=== PATIENT | female | born 1940 | race Hispanic/Latino ===

== ENCOUNTER → 2017-05-30 | Outpatient (CLI) | payer OTHER | END | disposition home or self-care (01) | LOC: SHCH 11:26 | PROVIDERS: ATTEND Internal Medicine Cardiovascular Disease | DX: I10 Essential (primary) hypertension (principal) | CPT/HCPCS: 93306 ==

== ENCOUNTER → 2017-06-02 | Outpatient (CLI) | payer OTHER ==
[~2017-06-02] MED LIST: REGADENOSON 0.4 MG/5 ML PF SYG IVP SCH
== END | disposition home or self-care (01) ==
LOC: SHCH 07:55 → EDUNIT# 08:10
PROVIDERS: ATTEND Internal Medicine Cardiovascular Disease
DX: R07.9 Chest pain, unspecified (principal)
CPT/HCPCS: 78452; 93017; 96374; A9500 ×2; J2785

== ENCOUNTER → 2020-08-28 | Outpatient (CLI) | payer MEDICARE ==
[~2020-08-28] MED LIST changes: +AMLO-104 PO; +ASPI-556 PO; +DIAZ2TAB3 PO; +METF-444 PO; +PRAV20TA4 PO; -REGADENOSON 0.4 MG/5 ML PF SYG IVP SCH
== END | disposition home or self-care (01) ==
LOC: SHCH 13:00
PROVIDERS: ATTEND Internal Medicine Cardiovascular Disease
DX: I51.7 Cardiomegaly (principal); R68.81 Early satiety; K29.40 Chronic atrophic gastritis without bleeding; R00.2 Palpitations; E78.5 Hyperlipidemia, unspecified; E11.9 Type 2 diabetes mellitus without complications; R55 Syncope and collapse; I10 Essential (primary) hypertension
CPT/HCPCS: 93306; 93356

== ENCOUNTER 2020-08-29 10:10 | Emergency (ER) | payer MEDICARE ==
[2020-08-29 11:20] LABS: BASOPHILS % (AUTO) 0.5 % (0.0-5.0); EOSINOPHILS % (AUTO) 3.6 % (0.0-8.0); HEMATOCRIT 45.6 % (36-48); LYMPHOCYTES % (AUTO) 16.9 % (21.0-51.0); MEAN CORPUSCULAR HEMOGLOBIN 30.8 pg (27.0-33.0); MEAN CORPUSCULAR HGB CONC 33.1 g/dL (32.0-36.0); MEAN CORPUSCULAR VOLUME 93.1 fL (79-99); NEUTROPHILS % (AUTO) 69.5 % (40.0-77.0); PLATELET COUNT (AUTO) 183 K/uL (130-400); RED CELL DISTRIBUTION WIDTH 13.2 % (11.0-15.5); WHITE BLOOD COUNT (AUTO) 5.8 K/uL (4.8-10.8)
[2020-08-29 11:31] LABS: ALBUMIN 4.3 g/dL (3.5-5.0); BILIRUBIN,TOTAL 0.4 mg/dL (0.2-1.0); POTASSIUM 4.7 mmol/L (3.5-5.1)
[2020-08-29] MEDS ORDERED: SODIUM CHLORIDE 0.9% 500ML 500 ML IV ONE (12:17)
== END 2020-08-29 13:36 | disposition home or self-care (01) ==
LOC: EDH 10:10
DX: R55 Syncope and collapse (principal); R53.1 Weakness; R51.9 Headache, unspecified; I10 Essential (primary) hypertension; E11.9 Type 2 diabetes mellitus without complications; E78.00 Pure hypercholesterolemia, unspecified; Z88.2 Allergy status to sulfonamides; Z90.710 Acquired absence of both cervix and uterus; Z90.49 Acquired absence of other specified parts of digestive tract
CPT/HCPCS: 36415; 70450; 80053; 85025; 93005; 99285; J7040

== ENCOUNTER 2023-06-02 07:45 | Emergency (ER) | payer MEDICARE ==
[~2023-06-02] VITALS: Ht 144.8 cm; Wt 60.8 kg
[2023-06-02 07:47] VITALS: BP 181/105; PULSE 92; RESP 16
[2023-06-02 09:26] LABS: BASOPHILS # (AUTO) 0.03 K/uL (0.00-0.20); BASOPHILS % (AUTO) 0.5 % (0.0-5.0); EOSINOPHILS # (AUTO) 0.14 K/uL (0.00-0.70); EOSINOPHILS % (AUTO) 2.5 % (0.0-8.0); HEMATOCRIT 44.4 % (36-48); IMMATURE GRANULOCYTE ABSOLUTE 0.03 K/uL (0-1); LYMPHOCYTES # (AUTO) 0.9 K/uL (1.0-4.8); MEAN CORPUSCULAR HEMOGLOBIN 32.6 pg (27.0-33.0); MEAN CORPUSCULAR HGB CONC 34.5 g/dL (32.0-36.0); MEAN CORPUSCULAR VOLUME 94.7 fL (79-99); MONOCYTES # (AUTO) 0.5 K/uL (0.1-1.0); MONOCYTES % (AUTO) 8.3 % (3.0-13.0); NEUTROPHILS # (AUTO) 4.2 K/uL (1.8-7.7); NEUTROPHILS % (AUTO) 73.2 % (40.0-77.0); PLATELET COUNT (AUTO) 188 K/uL (130-400); RED BLOOD CELL COUNT(AUTO) 4.69 MIL/uL (4.00-5.50); RED CELL DISTRIBUTION WIDTH 12.9 % (11.0-15.5); WHITE BLOOD COUNT (AUTO) 5.7 K/uL (4.8-10.8)
[2023-06-02 09:37] LABS: POTASSIUM 3.9 mmol/L (3.5-5.1)
[2023-06-02 09:41] LABS: ALBUMIN 3.9 g/dL (3.5-5.0); BILIRUBIN,TOTAL 0.5 mg/dL (0.2-1.0); MAGNESIUM 2.4 mg/dL (1.80-2.40); TOTAL PROTEIN, SERUM 7.4 g/dL (6.0-8.3)
[2023-06-02 10:55] LABS: ERYTHROCYTE SEDIMENTATION RATE 5 MM/HR (0-30)
[2023-06-02] MEDS ORDERED: AZEL205.9 NS (11:54)
== END 2023-06-02 12:49 | disposition home or self-care (01) ==
LOC: EDH 07:45
DX: R51.9 Headache, unspecified (principal); E11.9 Type 2 diabetes mellitus without complications; E78.00 Pure hypercholesterolemia, unspecified; I10 Essential (primary) hypertension; Z79.82 Long term (current) use of aspirin; Z79.84 Long term (current) use of oral hypoglycemic drugs; Z79.899 Other long term (current) drug therapy; Z88.2 Allergy status to sulfonamides; Z90.49 Acquired absence of other specified parts of digestive tract; Z90.710 Acquired absence of both cervix and uterus
CPT/HCPCS: 36415; 70450; 70480; 80053; 83735; 85025; 85651

== ENCOUNTER 2024-01-01 12:15 | Observation (INO) | payer MEDICARE ==
[~2024-01-01] VITALS: Ht 144.8 cm; Wt 56.6 kg
[~2024-01-01 12:15] MED LIST changes: +AZEL205.9 NS
[2024-01-01 13:12] LABS: BASOPHILS # (AUTO) 0.03 K/uL (0.00-0.20); BASOPHILS % (AUTO) 0.5 % (0.0-5.0); EOSINOPHILS # (AUTO) 0.06 K/uL (0.00-0.70); IMMATURE GRANULOCYTE ABSOLUTE 0.02 K/uL (0-1); LYMPHOCYTES % (AUTO) 17.8 % (21.0-51.0); MEAN CORPUSCULAR HEMOGLOBIN 32.5 pg (27.0-33.0); MEAN CORPUSCULAR HGB CONC 33.9 g/dL (32.0-36.0); MEAN CORPUSCULAR VOLUME 95.9 fL (79-99); MONOCYTES # (AUTO) 0.5 K/uL (0.1-1.0); MONOCYTES % (AUTO) 8.4 % (3.0-13.0); NEUTROPHILS # (AUTO) 4.1 K/uL (1.8-7.7); PLATELET COUNT (AUTO) 192 K/uL (130-400); RED BLOOD CELL COUNT(AUTO) 5.11 MIL/uL (4.00-5.50); RED CELL DISTRIBUTION WIDTH 13.9 % (11.0-15.5); WHITE BLOOD COUNT (AUTO) 5.7 K/uL (4.8-10.8)
[2024-01-01 13:26] LABS: MAGNESIUM 2.2 mg/dL (1.80-2.40); POTASSIUM 3.5 mmol/L (3.5-5.1)
[2024-01-01 13:36] LABS: B-TYPE NATRIURETIC PEPTIDE 59 pg/mL (0-100)
[2024-01-01 14:34] LABS: APPEARANCE,URINE CLEAR (CLEAR); BILIRUBIN,URINE NEGATIVE (NEGATIVE); COLOR,URINE COLORLESS (YELLOW); GLUCOSE, URINE (UA) NEGATIVE (NEGATIVE); KETONES,URINE NEGATIVE (NEGATIVE); LEUKOCYTE ESTERASE ,URINE NEGATIVE Leu/uL (NEGATIVE); NITRATE,URINE NEGATIVE (NEGATIVE); PH,URINE 5.5 (5.0-8.0); PROTEIN,URINE NEGATIVE (NEGATIVE); UROBILINOGEN,URINE 0.2 mg/dL (0.2-1.0)
[2024-01-01 14:36] LABS: ADD UA MICROSCOPIC YES; RBC,URINE 0-1 /HPF (0-1); SQUAMOUS EPITHELIAL CELL,UR RARE /HPF (0-2); WBC,URINE 0-1 /HPF (0-1)
[2024-01-01] MEDS ORDERED: hydrALAZine 20MG/ML VIAL IV PRN (15:30)
[2024-01-01] MEDS ORDERED: acetaMINOPHEN WITH coDEINE 1 TAB TAB PO PRN (15:30)
[2024-01-01] MEDS ORDERED: DEXTROSE 50%-WATER 50 ML DISP.SYRIN IV PRN (15:30)
[2024-01-01] MEDS ORDERED: GLUCAGON 1MG KIT 1 MG ML IM PRN (15:30)
[2024-01-01] MEDS ORDERED: LACTULOSE 20 GM/30 ML UDCUP PO PRN (15:30)
[2024-01-01] MEDS ORDERED: guaiFENesin-DM 200/20MG 10ML PO PRN (15:30)
[2024-01-01] MEDS ORDERED: ondanSETRON 4MG INJ IV PRN (15:30)
[2024-01-01] MEDS ORDERED: morPHINE 4 MG SYG IV PRN (15:30)
[2024-01-01] MEDS ORDERED: NITROGLYCERIN 0.4 MG SL TAB SL PRN (15:30)
[2024-01-01] MEDS ORDERED: DiphenhydrAMINE HCL 25 MG CAPSULE PO PRN (15:30)
[2024-01-01] MEDS ORDERED: cefTRIAXone 1G VIAL 1 GM in 0.9%NACL 50ML 50 ML IV SCH (15:30)
[2024-01-01] MEDS ORDERED: MAG/ALUM/SIMETH 30 ML UDCUP PO PRN (15:30)
[2024-01-01] MEDS: ASPIRIN 325MG TAB PO ONE (15:58)
[2024-01-01] MEDS: AZITHROMYCIN 500MG+NS 250ML 250 ML IV SCH (15:58)
[2024-01-01] MEDS: INSULIN humuLIN R 100 UNIT/ML 3ML SQ SCH (16:15)
[2024-01-01] MEDS: cefTRIAXone 1G VIAL IVPB SCH (16:17)
[2024-01-01] MEDS: SODIUM CHLORIDE 3% FOR INHALATION 4 ML/AMP VIAL.NEB IH ONE ×3 (16:50→23:13)
[2024-01-01 17:23] LABS: HEMOGLOBIN A1C 5.8 % (4.0-6.0)
[2024-01-01] MEDS: FAMOTIDINE 20MG VIAL IV SCH (20:58)
[2024-01-01] MEDS: atorVAStatin 40 MG TABLET PO SCH (20:58)
[2024-01-01 22:21] LABS: INFLUENZA TYPE A Negative For Type A (NEGATIVE); INFLUENZA TYPE B Negative For Type B (NEGATIVE)
[2024-01-02 01:00] VITALS: O2SAT 100
[2024-01-02 01:07] VITALS: BP 130/84; PULSE 74; RESP 16; TEMP 97.9
[2024-01-02] MEDS: acetaMINOPHEN 325 MG TAB PO PRN (04:17)
[2024-01-02 04:30] VITALS: BP 127/71; PULSE 76; RESP 19; TEMP 97.7
[2024-01-02 07:00] VITALS: BP 130/65; PULSE 68; RESP 16; TEMP 97.7
[2024-01-02 08:00] VITALS: O2SAT 100
[2024-01-02] MEDS: ASPIRIN 81 MG EC TAB PO SCH (08:22)
[2024-01-02] MEDS: ENOXAPARIN SODIUM 40 MG/0.4 ML SYRINGE SQ SCH (08:22)
[2024-01-02 11:00] VITALS: BP 139/71; PULSE 90; RESP 20; TEMP 97.5
[2024-01-02] MEDS ORDERED: NITR0.4T50 SL (14:33)
[2024-01-02] MEDS ORDERED: AZIT250T9 PO (14:35)
== END 2024-01-02 15:45 | disposition home or self-care (01) ==
LOC: EDH 12:16 → INTOOBSV 15:06 → EDHIP 15:06 → 2AH 22:58
PROVIDERS: ADMIT Hospitalist; ATTEND Hospitalist
DX: I25.10 Atherosclerotic heart disease of native coronary artery without angina pectoris (principal); J18.9 Pneumonia, unspecified organism; E11.9 Type 2 diabetes mellitus without complications; I10 Essential (primary) hypertension; E78.5 Hyperlipidemia, unspecified; R07.89 Other chest pain; M79.602 Pain in left arm; F41.9 Anxiety disorder, unspecified; M19.90 Unspecified osteoarthritis, unspecified site; Z90.710 Acquired absence of both cervix and uterus; Z90.49 Acquired absence of other specified parts of digestive tract; Z91.010 Allergy to peanuts; Z79.82 Long term (current) use of aspirin; Z79.84 Long term (current) use of oral hypoglycemic drugs; Z79.899 Other long term (current) drug therapy
CPT/HCPCS: 96368; 99285; 83036; 83735; 84484 ×2; 80048; 83880; 85025; 87040; 87804 ×2; 82948 ×4; 81001; 36415; 71045; 93308; 96365; 96375; 93005; 94640; 96372; G0378 ×24; J3490; J0696; J0456; J1650

== ENCOUNTER 2024-07-18 12:33 | Emergency (ER) | payer MEDICARE ==
[~2024-07-18] VITALS: Ht 144.8 cm; Wt 60.8 kg
[~2024-07-18 12:33] MED LIST changes: +AZIT250T9 PO; +NITR0.4T50 SL
[2024-07-18 13:46] LABS: BASOPHILS # (AUTO) 0.04 K/uL (0.00-0.20); BASOPHILS % (AUTO) 0.7 % (0.0-5.0); EOSINOPHILS # (AUTO) 0.32 K/uL (0.00-0.70); EOSINOPHILS % (AUTO) 5.7 % (0.0-8.0); HEMATOCRIT 46.6 % (36-48); IMMATURE GRANULOCYTE ABSOLUTE 0.02 K/uL (0-1); LYMPHOCYTES # (AUTO) 1.3 K/uL (1.0-4.8); LYMPHOCYTES % (AUTO) 23.2 % (21.0-51.0); MEAN CORPUSCULAR HEMOGLOBIN 31.2 pg (27.0-33.0); MEAN CORPUSCULAR HGB CONC 32.8 g/dL (32.0-36.0); MEAN CORPUSCULAR VOLUME 94.9 fL (79-99); MONOCYTES # (AUTO) 0.6 K/uL (0.1-1.0); MONOCYTES % (AUTO) 10.2 % (3.0-13.0); NEUTROPHILS # (AUTO) 3.4 K/uL (1.8-7.7); NEUTROPHILS % (AUTO) 59.8 % (40.0-77.0); PLATELET COUNT (AUTO) 203 K/uL (130-400); RED BLOOD CELL COUNT(AUTO) 4.91 MIL/uL (4.00-5.50); RED CELL DISTRIBUTION WIDTH 13.7 % (11.0-15.5); WHITE BLOOD COUNT (AUTO) 5.6 K/uL (4.8-10.8)
[2024-07-18 13:55] LABS: CREATININE 1.1 mg/dL (0.5-1.0); POTASSIUM 4.5 mmol/L (3.5-5.1)
[2024-07-18 13:57] LABS: INR 0.97 (0.85-1.15); PROTHROMBIN TIME 10.3 SEC (9.6-11.6)
[2024-07-18 13:59] LABS: PARTIAL THROMBOPLASTIN TIME 38.2 SEC (26.3-35.5)
[2024-07-18 14:00] LABS: MAGNESIUM 2.4 mg/dL (1.80-2.40)
[2024-07-18] MEDS: LACTATED RINGERS 1000ML 1,000 ML IV ONE (14:04)
[2024-07-18 14:07] LABS: B-TYPE NATRIURETIC PEPTIDE 67 pg/mL (0-100)
--- NOTE | 2024-07-18 14:22 | HMCIMG ---
Exam Type: CHEST 1VW Clinical Information: CP Comparison: None Findings: The lungs are clear of infiltrates. The heart is enlarged. Bony and soft tissue structures of the chest wall are unremarkable. IMPRESSION: Cardiomegaly. Clear lungs.
--- NOTE | 2024-07-18 14:48 | ERN ---
General Chief Complaint: Chest Pain Stated Complaint: WEAKNESS, CHEST PAIN, NAUSEA ONSET LAST NIGHT Time Seen by MD: 12:35 Source: patient History of Present Illness Initial Comments PATIENT IS A AN 83-YEAR-OLD FEMALE COMING IN TO BE EVALUATED FOR GENERALIZED BODY ACHES. SHE ALSO STATES THAT SHE HAS BEEN FEELING WEAK. HER HAS BEEN DISCLOSE THAT PATIENT HAS BEEN HAVING PHYSICAL THERAPY AND HAS NOTICED HER HAVING BODY ACHES SINCE THEN. Allergies: Coded Allergies: Sulfa (Sulfonamide Antibiotics) (Unverified Allergy, Unknown, 05/30/17) peanut (Unverified Allergy, Unknown, 05/30/17) Uncoded Allergies: chocolate (Allergy, Severe, 05/30/17) Home Meds Active Scripts Azithromycin (Azithromycin) 250 Mg Tablet, 250 MG PO DAILY for 4 Days, #4 TAB 0 Refills Prov:MARY MORENO MD 01/02/24 Nitroglycerin (Nitroglycerin) 0.4 Mg Tab.subl, 0.4 MG SL [id number] PRN for chest pain for 30 Days, #30 TAB.SL 1 Refill Prov:MARY MORENO MD 01/02/24 Azelastine HCl (Astepro Allergy) 205.5 Mcg (0.15 %) [place].pump, 1 SPRAY NS DAILY for 15 Days, #1 SPRAY 0 Refills Prov:RAMSEY WALLACE MD 06/02/23 Reported Medications Diazepam (Diazepam) 2 Mg Tablet, 2.5 MG PO DAILY for ANXIETY/AGITATION, TAB 10/07/17 Pravastatin Sodium (Pravastatin Sodium) 20 Mg Tablet, 20 MG PO DAILY, TAB 10/07/17 Metformin HCl (Metformin HCl) 500 Mg Tablet, 250 MG PO DAILY, TAB 10/07/17 Amlodipine Besylate/Benazepril (Amlodipine-Benazepril 5-20 mg) 1 Each Capsule, 1 EACH PO DAILY, CAP 10/07/17 Aspirin (Aspir 81) 81 Mg Tablet.dr, 81 MG PO DAILY, TAB 10/07/17 Past Medical History Past Medical History: Diabetes-Type II, High Cholesterol, Hypertension, Sinusitis Past Surgical History: Appendectomy, Hysterectomy ROS Dictation CONSTITUTIONAL: NO CHILLS, NO FEVER, NO WEAKNESS, NO DIAPHORESIS, NO MALAISE. HEAD/FACE: NO SIGNS OF TRAUMA. EENT: NO EYE PAIN, NO BLURRED VISION, NO TEARING, NO DOUBLE VISION, NO EAR PAIN, NO EAR DISCHARGE, NO NOSE PAIN, NO NASAL CONGESTION, NO THROAT PAIN, NO THROAT SWELLING, NO MOUTH PAIN. RESPIRATORY: NO COUGH, NO ORTHOPNEA, NO SOB, NO STRIDOR, NO WHEEZING. CARDIOVASCULAR: NO CHEST PAIN, NO EDEMA, NO PALPITATIONS, NO SYNCOPE. GASTROINTESTINAL/ABDOMINAL: NO ABDOMINAL PAIN, NO CONSTIPATION, NO DIARRHEA, NO NAUSEA, NO VOMITING. GENITOURINARY: NO ABNORMAL DISCHARGE, NO DYSURIA, NO FREQUENT URINATION, NO HEMATURIA. NO COMPLAINTS OF PAIN IN THE GENITALS. MUSCULOSKELETAL: NO BACK PAIN, NO GOUT, NO JOINT PAIN, NO JOINT SWELLING, NO MUSCLE PAIN, NO MUSCLE STIFFNESS, NO NECK PAIN. INTEGUMENTARY: NO CHANGE IN COLOR, NO CHANGE IN HAIR/NAILS, NO DRYNESS, NO LESION, NO LUMPS, NO RASH. NEUROLOGICAL/PSYCH: NO ANXIETY, NOT DEPRESSED, NO EMOTIONAL PROBLEM, NO HEADACHE, NO NUMBNESS, NO PRE-EXISTING DEFICIT, NO HISTORY OF SEIZURES, NO TREMORS, NO WEAKNESS. HEMATOLOGIC/LYMPHATIC: NOT ANEMIC, NO HISTORY OF BLOOD CLOTS, NO APPARENT BLEEDING, NO BRUISING, GLANDS NOT SWOLLEN. ALL SYSTEMS NEGATIVE, EXCEPT NOTED. Physical Exam Physical Exam Dictation VITAL SIGNS: REVIEWED. GENERAL APPEARANCE: ALERT, ORIENTED X3, NO ACUTE DISTRESS, OBESE. HEAD AND FACE: NON-TRAUMATIC. EYES: PERRL, PINK CONJUNCTIVAS, EYELID NO TRAUMA, ANTERIOR CHAMBER CLEAR. EARS: PINNAS INTACT AND NO SIGNS OF TRAUMA OR ERYTHEMA. EAR CANALS CLEAR AND NO DISCHARGE. TMS NO ERYTHEMA. NOSE: NO DISCHARGE, NO BLEEDING. OROPHARYNX: MOUTH NORMAL, TEETH NO CARIES, TONGUE PINK. PHARYNX CLEAR, NO ERYTHEMA. TONSILS NO EXUDATES, NO ABSCESSES NOTED. MUCOUS MEMBRANE MOIST. NECK: SUPPLE, NON-TENDER, NO THYROMEGALY, NO MASSES, NO JVD, NO BRUITS. BREAST: DEFERRED. CHEST: NO TENDERNESS, NO CREPITUS, NO PARADOXICAL MOVEMENT, NO RETRACTIONS. LUNGS: CLEAR, WELL-VENTILATED, SYMMETRIC, NO RALES, NO WHEEZING, NO RHONCHI, NO STRIDOR, GOOD BREATH SOUNDS BILATERALLY. HEART: REGULAR RATE, REGULAR RHYTHM, NO MURMUR, NO GALLOPS. VASCULAR: NO PERIPHERAL EDEMA. ABDOMEN: SOFT, POSITIVE BOWEL SOUNDS, NONDISTENDED, NO GUARDING, NONTENDER, NO REBOUND, NO MASSES NO HEPATOMEGALY, NO SPLENOMEGALY, NO MENDOZA'S SIGN, NO HE RNIAS. RECTAL: DEFERRED. GENITAL: DEFERRED. NEUROLOGICAL: NORMAL SPEECH, GROSS MOTOR FUNCTION INTACT, GROSS SENSORY FUNCTIO N INTACT. MUSCULOSKELETAL: NECK NONTENDER, FULL RANGE OF MOTION, BACK NONTENDER, FULL RANGE OF MOTION. EXTREMITIES: NONTENDER, FULL RANGE OF MOTION. SKIN: COLOR PINK, DRY, NO TURGOR, NO RASH, NO LACERATIONS, NO ABRASIONS, NO CONTUSIONS. LYMPHATICS: DEFERRED. Results Laboratory and Microbiology Lab and Micro Result Laboratory Tests Test 07/18/24 13:32 White Blood Count 5.6 K/uL (4.8-10.8) Red Blood Count 4.91 MIL/uL (4.00-5.50) Hemoglobin 15.3 g/dL (12.0-16.0) Hematocrit 46.6 % (36-48) Mean Corpuscular Volume 94.9 fL (79-99) Mean Corpuscular Hemoglobin 31.2 pg (27.0-33.0) Mean Corpuscular Hemoglobin Concent 32.8 g/dL (32.0-36.0) Red Cell Distribution Width 13.7 % (11.0-15.5) Platelet Count 203 K/uL (130-400) Mean Platelet Volume 10.0 fL (7.5-10.5) Immature Granulocyte % (Auto) 0.4 % (0-1) Neutrophils (%) (Auto) 59.8 % (40.0-77.0) Lymphocytes (%) (Auto) 23.2 % (21.0-51.0) Monocytes (%) (Auto) 10.2 % (3.0-13.0) Eosinophils (%) (Auto) 5.7 % (0.0-8.0) Basophils (%) (Auto) 0.7 % (0.0-5.0) Neutrophils # (Auto) 3.4 K/uL (1.8-7.7) Lymphocytes # (Auto) 1.3 K/uL (1.0-4.8) Monocytes # (Auto) 0.6 K/uL (0.1-1.0) Eosinophils # (Auto) 0.32 K/uL (0.00-0.70) Basophils # (Auto) 0.04 K/uL (0.00-0.20) Absolute Immature Granulocyte (auto 0.02 K/uL (0-1) Nucleated Red Blood Cells 0.0 % (0.0-0.19) Prothrombin Time 10.3 SEC (9.6-11.6) Prothromb Time International Ratio 0.97 (0.85-1.15) Activated Partial Thromboplast Time 38.2 SEC (26.3-35.5) H Sodium Level 142 mmol/L (136-145) Potassium Level 4.5 mmol/L (3.5-5.1) Chloride Level 106 mmol/L (101-111) Carbon Dioxide Level 27 mmol/L (21-32) Blood Urea Nitrogen 22 mg/dL (7-18) H Creatinine 1.1 mg/dL (0.5-1.0) H Glomerular Filtration Rate Calc 50 mL/min (>90) Random Glucose 125 mg/dL (70-105) H Total Calcium 9.8 mg/dL (8.5-10.1) Magnesium Level 2.40 mg/dL (1.80-2.40) Total Creatine Kinase 72 U/L (21-232) # Troponin I High Sensitivity 10 ng/L (4-50) B-Type Natriuretic Peptide 67 pg/mL (0-100) Labs Reviewed?: Yes EKG/XRAY/US/CT/MRI EKG Comment 07/18/2024 TIME 12:39 P.M. VENTRICULAR RATE [address] WAVE ELEVATION OR DEPRESSION DC 137 [place] [id number] IMAGING REPORT Signed PATIENT: YRIS DURON MR#: [id number] : 1940 SEX: F AGE: 83 LOCATION: ED ORDER 1255 STATUS: REG ER REPORT#: [id number] SERVICE [id number] REASON: CP ORDERING PHYSICIAN: ARACELI MAYBERRY MD PROCEDURE: CXR1VW - CHEST 1VW Exam Type: CHEST 1VW Clinical Information: CP Comparison: None Findings: The lungs are clear of infiltrates. The heart is enlarged. Bony and soft tissue structures of the chest wall are unremarkable. IMPRESSION: Cardiomegaly. Clear lungs. DICTATED BY: DARLYN DAS MD DATE: 07/18/241417 ELECTRONICALLY SIGNED BY: DARLYN DAS MD DATE: 07/18/24 142 MDM MDM: DIFFERENTIAL DIAGNOSIS: GENERALIZED BODY WEAKNESS, BODY ACHES, MUSCLE STRAIN, RATIONALE: TESTS CONSIDERED AND ORDERED SECONDARY TO SHARED DECISION MAKING INCLUDE: PREVIOUS OUTSIDE RECORDS REVIEWED: OLD ER VISITS. RISK OF COMPLICATION AND/OR MORBIDITY OR MORTALITY OF PATIENT MANAGEMENT: NONE PATIENT IS A AN 83-YEAR-OLD FEMALE COMING IN TO BE EVALUATED FOR GENERALIZED BODY ACHES. PATIENT HAS BEEN RECEIVING PHYSICAL THERAPY AND HAS BEEN MORE ACHY LATELY. CARDIAC WORKUP NEGATIVE FOR ACUTE FINDINGS. PATIENT WILL BE DISCHARGED IN STABLE CONDITION DIAGNOSIS OF MUSCLE ACHES AND DEHYDRATION. ED Course Orders Procedure Category Date Status Time 12 Lead Ekg Tracing- EKG 07/18/24 Logged Technical 12:37 Cbc With Differential LAB 07/18/24 Complete 12:54 Prothrombin Time With LAB 07/18/24 Complete INR 12:54 B-Type Natriuretic LAB 07/18/24 Complete Peptide 12:54 Chest 1vw RAD 07/18/24 Resulted 12:54 Lactated Ringers PHA 07/18/24 Complete 1000ml (Lactated 13:00 Magnesium LAB 07/18/24 Complete 12:54 Creatine Kinase, Total LAB 07/18/24 Complete 12:54 Troponin I High LAB 07/18/24 Complete Sensitivity 12:54 Urinalysis Profile LAB 07/18/24 Logged 12:54 Partial LAB 07/18/24 Complete Thromboplastin Time 12:54 Basic Metabolic Panel LAB 07/18/24 Complete 12:54 Current Medications Medications (Trade) Dose Ordered Sig/Josefina Route PRN Reason Start Time Stop Time Status Last Admin Dose Admin Lactated Ringer's 1,000 ml @ 0 mls/hr ONCE ONCE IV 07/18/24 13:00 07/18/24 13:01 DC 07/18/24 14:04 Vital Signs Date Time Temp Pulse Resp B/P (MAP) Pulse Ox O2 Delivery O2 Flow Rate FiO2 07/18/24 12:34 98.4 82 14 182/74 98 Room Air 0 DX & DISP Disposition: Discharge Departure Impression: Primary Impression: Muscle ache Additional Impression: Dehydration Condition: Stable Additional Instructions: YOU HAVE BEEN REVIEWED IN THE EMERGENCY DEPARTMENT AT [facility] AFTER PRESENTING WITH CHEST PAIN. AFTER CONSIDERING YOUR HISTORY, YOUR RISK FACTORS, YOUR EKG AND YOUR BLOOD TEST TROPONINS, HAVE BEEN FOUND TO BE AT VERY LOW RISK LESS THAN (1 IN 100) OF HAVING A MAJOR ADVERSE CARDIAC EVENT (LIKE HEART ATTACK) IN THE NEAR FUTURE. IN THE " LOW RISK" GROUP, THE RISKS OF DOING FURTHER TESTS AND TREATMENT THE INPATIENT OUTWEIGHS THE BENEFITS. IN MANY PATIENTS IN THE LOW RISK GROUP FOR THE TEST OF ANY SORT OR UNNECESSARY, HOWEVER HE SHOULD DISCUSS THIS FURTHER WITH HIS GENERAL PRACTITIONER WHO WILL UNDERSTAND THE MEDICAL AND PERSONAL BACKGROUNDS BETTER. BECAUSE WE HAVE NEVER DECLARED YOU" NO RISK" WE WOULD SUGGEST. 1 RETURNING FOR MEDICAL REVIEW IF YOU HAVE FURTHER EPISODES OF CHEST PAIN/ARM PAIN OR OTHER CONCERNING SYMPTOMS LIKE DIZZINESS, COLLAPSE, PALPITATIONS OR SHORTNESS OF BREATH. 2. FOLLOWING UP WITH YOUR LOCAL DOCTOR WHO WILL CONSIDER THE NEED FOR FURTHER TESTING AND WILL ALSO ENSURE THAT ANY MODIFIABLE RISK FACTORS YOU MAY HAVE FOR HEART DISEASE ARE OPTIMALLY MANAGED. PATIENT WILL BE DISCHARGED IN STABLE CONDITION AT THE MOMENT DISCHARGE PATIENT STATES , NO CHEST PAIN Referrals: ISH FREDERICK (PCP) Time of Disposition: 14:48 ARACELI MAYBERRY MD Jul 18, 2024 14:48
[2024-07-18 15:26] VITALS: BP 154/78; PULSE 85; RESP 18; TEMP 98.2; O2SAT 99
--- NOTE | 2024-07-18 16:22 | EKG ---
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
== END 2024-07-18 16:33 | disposition home or self-care (01) ==
LOC: EDH 12:33
DX: M79.10 Myalgia, unspecified site (principal); E86.0 Dehydration; E11.9 Type 2 diabetes mellitus without complications; E78.00 Pure hypercholesterolemia, unspecified; Z79.82 Long term (current) use of aspirin; Z79.84 Long term (current) use of oral hypoglycemic drugs; Z79.899 Other long term (current) drug therapy; Z88.2 Allergy status to sulfonamides; Z90.49 Acquired absence of other specified parts of digestive tract; Z90.710 Acquired absence of both cervix and uterus
CPT/HCPCS: 99285; 96360; 71045; 82550; 83735; 84484; 80048; 83880; 85025; 85610; 85730; 36415; 93005; J7120

== ENCOUNTER 2024-11-22 07:30 | Emergency (ER) | payer MEDICARE ==
[~2024-11-22] VITALS: Ht 144.8 cm; Wt 60.8 kg
[~2024-11-22 07:30] MED LIST changes: -PRAV20TA4 PO; +PRAV20TA59 PO
[2024-11-22 07:32] VITALS: TEMP 97.7
--- NOTE | 2024-11-22 07:47 | ERN ---
General Chief Complaint: Arm Swelling/Redness Stated Complaint: CHRONIC RT ARM PAIN Time Seen by MD: 07:34 Source: patient History of Present Illness Initial Comments Patient is a an 84-year-old female coming in with multiple complaints. Patient states that she has been has been in his right shoulder pain for several weeks. She also stated that a couple of days ago she strained it even more while sleeping on it. Along with this complaint she states she has been having some sinus congestion. Allergies: Coded Allergies: Sulfa (Sulfonamide Antibiotics) (Unverified Allergy, Unknown, 05/30/17) peanut (Unverified Allergy, Unknown, 05/30/17) Uncoded Allergies: chocolate (Allergy, Severe, 05/30/17) Home Meds Active Scripts Azithromycin (Azithromycin) 250 Mg Tablet, 250 MG PO DAILY for 4 Days, #4 TAB 0 Refills Prov:MARY MORENO MD 01/02/24 Nitroglycerin (Nitroglycerin) 0.4 Mg Tab.subl, 0.4 MG SL [id number] PRN for chest pain for 30 Days, #30 TAB.SL 1 Refill Prov:MARY MORENO MD 01/02/24 Azelastine HCl (Astepro Allergy) 205.5 Mcg (0.15 %) [place].pump, 1 SPRAY NS DAILY for 15 Days, #1 SPRAY 0 Refills Prov:RAMSEY WALLACE MD 06/02/23 Reported Medications Diazepam (Diazepam) 2 Mg Tablet, 2.5 MG PO DAILY for ANXIETY/AGITATION, TAB 10/07/17 Pravastatin Sodium (Pravastatin Sodium) 20 Mg Tablet, 20 MG PO DAILY, TAB 10/07/17 Metformin HCl (Metformin HCl) 500 Mg Tablet, 250 MG PO DAILY, TAB 10/07/17 Amlodipine Besylate/Benazepril (Amlodipine-Benazepril 5-20 mg) 1 Each Capsule, 1 EACH PO DAILY, CAP 10/07/17 Aspirin (Aspir 81) 81 Mg Tablet.dr, 81 MG PO DAILY, TAB 10/07/17 Past Medical History Past Medical History: Arthritis, Diabetes-Type II, High Cholesterol, Hypertension, Sinusitis Past Surgical History: Appendectomy, Hysterectomy ROS Dictation CONSTITUTIONAL: No chills, no fever, no weakness, no diaphoresis, no malaise. HEAD/FACE: No signs of trauma. EENT: No eye pain, no blurred vision, no tearing, no double vision, no ear pain, no ear discharge, no nose pain, no nasal congestion, no throat pain, no throat swelling, no mouth pain. RESPIRATORY: No cough, no orthopnea, no SOB, no stridor, no wheezing. CARDIOVASCULAR: No chest pain, no edema, no palpitations, no syncope. GASTROINTESTINAL/ABDOMINAL: No abdominal pain, no constipation, no diarrhea, no nausea, no vomiting. GENITOURINARY: No abnormal discharge, no dysuria, no frequent urination, no hematuria. No complaints of pain in the genitals. MUSCULOSKELETAL: No back pain, no gout, no joint pain, no joint swelling, no muscle pain, no muscle stiffness, no neck pain. INTEGUMENTARY: No change in color, no change in hair/nails, no dryness, no lesion, no lumps, no rash. NEUROLOGICAL/PSYCH: No anxiety, not depressed, no emotional problem, no heada quinton, no numbness, no pre-existing deficit, no history of seizures, no tremors, no weakness. HEMATOLOGIC/LYMPHATIC: Not anemic, no history of blood clots, no apparent bleeding, no bruising, glands not swollen. All Systems Negative, Except as Noted. Physical Exam Physical Exam Dictation VITAL SIGNS: Reviewed. GENERAL APPEARANCE: Alert, oriented x3, no acute distress, obese. HEAD AND FACE: Non-traumatic. EYES: PERRL, pink conjunctivas, eyelid no trauma, anterior chamber clear. EARS: Pinnas intact and no signs of trauma or erythema. Ear canals CERUMEN, TMs erythema. NOSE: No discharge, no bleeding. NASAL TURBINATE SWELLING BILATERAL OROPHARYNX: Mouth normal, teeth no caries, tongue pink. Pharynx clear, no erythema. Tonsils no exudates, no abscesses noted. Mucous membrane moist. NECK: Supple, non-tender, no thyromegaly, no masses, no JVD, no bruits. BREAST: Deferred. CHEST: No tenderness, no crepitus, no paradoxical movement, no retractions. LUNGS: Clear, well-ventilated, symmetric, no rales, no wheezing, no rhonchi, no stridor, good breath sounds bilaterally. HEART: Regular rate, regular rhythm, no murmur, no gallops. VASCULAR: No peripheral edema. ABDOMEN: Soft, positive bowel sounds, nondistended, no guarding, nontender, no rebound, no masses no hepatomegaly, no splenomegaly, no Nogueira's sign, no hernias. RECTAL: Deferred. GENITAL: Deferred. NEUROLOGICAL: Normal speech, gross motor function intact, gross sensory function intact. MUSCULOSKELETAL: Neck nontender, full range of motion, back nontender, full range of motion. EXTREMITIES: Nontender, full range of motion. SKIN: Color pink, dry, no turgor, no rash, no lacerations, no abrasions, no contusions. LYMPHATICS: Deferred. Results Laboratory and Microbiology Labs Reviewed?: Yes EKG/XRAY/US/CT/MRI EKG Comment 11/22/2024 TIME 7:51 A.M. VENTRICULAR RATE 78 SINUS RHYTHM RI [address] WAVE ELEVATION OR DEPRESSION MDM MDM: Differential diagnosis: SINUSITIS, CHRONIC PAIN, Rationale: Tests considered and ordered secondary to shared decision making include: Previous outside records reviewed: Old ER visits. Risk of complication and/or morbidity or mortality of patient management: None Medications-Per medication reconciliation Need for hospitalization: Patient does not meet criteria for hospitalization. Need for emergency major/minor surgery: No PATIENT IS A FEMALE COMING IN WITH MULTIPLE COMPLAINTS, PATIENT STATES THAT SHE HAS BEEN HAVING RIGHT SHOULDER PAIN FOR SOME TIME. PATIENT HAS BEEN ABLE TO HER RIGHT SHOULDER THAT HAS TENDERNESS IN THE DELTOID REGION. ON PHYSICAL EXAM NASAL TURBINATE SWELLING OROPHARYNGEAL EDGE CERUMEN BILATERAL EAR CANALS. 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 RIGHT SHOULDER SLING PLACED FOR SUPPORT OF OSTEOARTHRITIS OF THE RIGHT SHOULDER ED Course Orders Procedure Category Date Status Time 12 Lead Ekg Tracing- EKG 11/22/24 Complete Technical 07:41 Sling KATHLEEN 11/22/24 In Process 07:41 Naproxen (Naprosyn) PHA 11/22/24 Complete 08:00 Naproxen (Naprosyn) PHA 11/22/24 Complete 07:47 Current Medications Medications (Trade) Dose Ordered Sig/Josefina Route PRN Reason Start Time Stop Time Status Last Admin Dose Admin Naproxen (Naprosyn) 250 mg ONCE ONCE PO 11/22/24 08:00 11/22/24 08:01 DC 11/22/24 07:58 Naproxen (Naprosyn) 250 mg STK-MED ONCE .ROUTE 11/22/24 07:47 11/22/24 07:47 DC Vital Signs Date Time Temp Pulse Resp B/P (MAP) Pulse Ox O2 Delivery O2 Flow Rate FiO2 11/22/24 09:02 73 16 135/62 96 Room Air* 0 21 11/22/24 07:32 97.7 81 16 154/62 96 Room Air 0 DX & DISP Disposition: Discharge Departure Impression: Primary Impression: Sinusitis Condition: Stable Scripts Fluticasone Propionate (Flonase Nasal [place]) 50 Mcg/Actuation [place] 2 SPRAY NS DAILY for 30 Days, #16 GM 0 Refills Prov: ARACELI MAYBERRY MD 11/22/24 Isopropyl Alcohol in Glycerin (Debrox Swimmer's Ear Drop) 95 %-5 % Drops 30 ML OT BID for 7 Days, #50 DROP Prov: ARACELI MAYBERRY MD 11/22/24 Amoxicillin/Potassium Clav (Amox Tr-K Clv 875-125 mg Tab) 875 Mg-125 Mg Tablet 1 TAB PO BID for 10 Days, #20 TAB 0 Refills Prov: ARACELI MAYBERRY MD 11/22/24 Additional Instructions: FOLLOW-UP WITH PRIMARY CARE PROVIDER IN 1 TO 2 DAYS. TAKE MEDICATIONS DIRECTED HERE IN THE EMERGENCY ROOM. OKAY TO CONTINUE HOME MEDICATIONS UNLESS OTHERWISE DISCUSSED DURING YOUR VISIT IN THE EMERGENCY ROOM TODAY. RETURN TO YOUR NEAREST EMERGENCY ROOM IF SYMPTOMS WORSEN OR IF THERE IS NO IMPROVEMENT. CALL 911 IF YOU NEED IMMEDIATE ASSISTANCE. TAKE TYLENOL VBIC-KXL-HEMFSCD NEEDED AND IF NO CONTRAINDICATIONS ARE PRESENT. INCREASE ORAL HYDRATION. A WOUND CULTURE OR URINE CULTURE WAS ORDERED HERE IN THE EMERGENCY ROOM DEPARTMENT PLEASE FOLLOW-UP WITH PRIMARY CARE PROVIDER AND ADVISE THEM TO GET REPORTS FROM OUR FACILITY. IF YOU HAD ANY JAXSON WRAP/SPLINTS THAT WERE APPLIED HERE, PLEASE DO NOT REMOVE THEM UNTIL YOU SEE YOUR PRIMARY CARE OR SPECIALTY. REFERRALS: Referrals: ISH FREDERICK (PCP) Time of Disposition: 09:24 ARACELI MAYBERRY MD Nov 22, 2024 07:47
--- NOTE | 2024-11-22 07:56 | EKG ---
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
[2024-11-22] MEDS: NAPROXEN 250 MG TAB ONE (07:58)
[2024-11-22] MEDS: NAPROXEN 250 MG TAB PO ONE (07:58)
--- NOTE | 2024-11-22 07:59 | NUR ---
SLING TO RIGHT ARM PLACED PER DR. MAYBERRY'S ORDER, PT TOLERATED WELL.
[2024-11-22 09:02] VITALS: BP 135/62; PULSE 73; RESP 16; O2SAT 96
[2024-11-22] MEDS ORDERED: AMOX1TAB16 PO (09:25)
[2024-11-22] MEDS ORDERED: FLUT16H NS (09:25)
[2024-11-22] MEDS ORDERED: ISOP30DR11 OT (09:25)
== END 2024-11-22 09:28 | disposition home or self-care (01) ==
LOC: EDH 07:30
DX: J32.9 Chronic sinusitis, unspecified (principal); E11.9 Type 2 diabetes mellitus without complications; E78.00 Pure hypercholesterolemia, unspecified; I10 Essential (primary) hypertension; M19.90 Unspecified osteoarthritis, unspecified site; Z79.82 Long term (current) use of aspirin; Z79.84 Long term (current) use of oral hypoglycemic drugs; Z79.899 Other long term (current) drug therapy; Z88.2 Allergy status to sulfonamides; Z90.49 Acquired absence of other specified parts of digestive tract; Z90.710 Acquired absence of both cervix and uterus
CPT/HCPCS: 93005; 99283